=== PATIENT | male | born 1975 | race American Indian/Alaskan Native ===

== ENCOUNTER 2018-09-26 16:22 | Emergency (ER) | payer OTHER ==
--- NOTE | 2018-09-26 17:16 | Emergency Department Report ---
HPI - General Chief Complaint: Sore Throat Time Seen by Provider: 09/26/18 17:04 - HPI HPI: This is a 42-year-old male here reported that he has sore throat and nasal congestion but he also was exposed to STD because condom broke. He is not sure whether other person had STD symptoms. He said he can get in touch. Denies any penile drainage or burning. Denies any urinary burning. Denies any fever or chills, cough, night sweats, headache or chest pain. No medication taken. Denies any medical problems and sore throat is 4/10 worse with swallowing and no alleviating factors. No medication taken. Denies any penile rash or lesion. Denies blood in his urine. He is here wanting treatment for std ED Past Medical Hx - Past Medical History Previous Medical History?: No - Surgical History Past Surgical History?: No - Family History Family history: hypertension - Social History Smoking Status: Never Smoker Substance Use Type: None - Medications Home Medications: Home Medications Medication Instructions Recorded Confirmed Last Taken Type Cetirizine HCl [ZyrTEC] 10 mg PO QDAY 14 Days #14 capsule 09/26/18 Unknown Rx Fluticasone [Flonase] 1 spray NS QDAY 14 Days #1 bottle 09/26/18 Unknown Rx Ibuprofen [Motrin] 600 mg PO Q8H PRN #12 tablet 09/26/18 Unknown Rx ED Review of Systems ROS: Stated complaint: SINUS Other details as noted in HPI Constitutional: denies: chills, fever Eyes: denies: eye pain, eye discharge ENT: throat pain, congestion. denies: ear pain, dental pain, epistaxis Respiratory: denies: cough, shortness of breath, wheezing Cardiovascular: denies: chest pain, palpitations, dyspnea on exertion, edema, syncope Gastrointestinal: denies: abdominal pain, nausea, vomiting, hematemesis, hematochezia Genitourinary: denies: dysuria, hematuria Musculoskeletal: denies: arthralgia Skin: denies: rash Neurological: denies: headache, abnormal gait Physical Exam - Physical Exam Vital Signs: Vital Signs 09/26/18 16:45 Temperature 98.8 F Pulse Rate 62 Respiratory 16 Rate Blood Pressure 155/91 O2 Sat by Pulse 99 Oximetry General: This is a 42-year-old male well-nourished well-developed in no acute distress. Physical Exam: Head: Normocephalic atraumatic Ears:BIateral TM congested without erythema and loss of bony landmarks. Danis EAC with normal exam. No mastoid bone tenderness. Mouth: Moist, no pharyngeal erythema or exudate . UVULA midline and oral airways patent. No peritonsillar abscess Neck: Nontender to palpate, supple, normal range of motion. No adenopathy. No c- spine tenderness. Nose: Bilateral nasal mucosa congested/erythema with clear drainage. Maxillary and frontal sinuses non-tender to palpate. Eyes: Bilateral Sclerae and conjunctiva without injection. Bilateral pupils equal and reactive to light. Bilateral lids are normal. Normal accommodation.BEOMI Lungs: Clear to auscultate bilaterally, no rhonchi wheezes or rales. Normal work of breathing and no chest wall tenderness CV: S1, S2. Regular rate and rhythm negative murmur. Capillary refill is less than 3 seconds Abdomen: Nontender to palpation in all quadrants: No guarding or rebound tenderness. Positive bowel sounds in all quadrants. No CVA tenderness Extremity: No clubbing, cyanosis or edema. +2 pulses in all extremities and no neurovascular compromise Skin: Clean dry and intact, no rashes or lesions Psych: Normal mood and behavior ED Course Vital Signs 09/26/18 16:45 Temperature 98.8 F Pulse Rate 62 Respiratory 16 Rate Blood Pressure 155/91 O2 Sat by Pulse 99 Oximetry - Reevaluation(s) Reevaluation #1: 09/26/18 17:21 Patient to receive empiric treatment for gonorrhea, chlamydia and Trichomonas. He also received 800 mg Motrin for sore throat in ED. ED Medical Decision Making - Medical Decision Making This is 42-year-old male here report that he wants to be treated for STD due to possible exposure to STD with no certainty. He said while he was having sex: Number and he is concerned because he cannot get other person that he was having sexual activity with. He was empirically treated for gonorrhea, chlamydia and Trichomonas in emergency room and referred to primary care physician as he does have access to one for complete physical exam to include STD panel and he is in agreement. He was treated for sore throat with Motrin 100 mg and has diagnosis URI due to nasal congestion, runny nose and bilateral TM congested. He voiced understanding of diagnosis, treatment plan and need to follow up with his primary care physician for further evaluation and treatment. Sex encouraged and he voiced understanding. Patient discharged home with prescription for Zyrtec, motrin and Flonase. Critical care attestation.: If time is entered above; I have spent that time in minutes in the direct care of this critically ill patient, excluding procedure time. ED Disposition Clinical Impression: Concern about STD in male without diagnosis Pharyngitis Qualifiers: Pharyngitis/tonsillitis etiology: unspecified etiology Qualified Code(s): J02.9 - Acute pharyngitis, unspecified Upper respiratory infection Qualifiers: URI type: unspecified URI Qualified Code(s): J06.9 - Acute upper respiratory infection, unspecified Disposition: TO HOME OR SELFCARE Is pt being admited?: No Does the pt Need Aspirin: No Condition: Stable Instructions: Sexually Transmitted Diseases (ED), Safe Sex (ED), Upper Respiratory Infection (ED) Additional Instructions: See multiple primary care physician referral. Please call to schedule an appointment for follow-up visit for complete physical and check for STD to include HIV and herpes. You were treated for gonorrhea, chlamydia and trichomonas in emergency room. This is a one-time treatment. Please avoid having sexual activity over the next 2 weeks and please avoid using alcohol over the next 7 days as medication can cause severe nausea and vomiting with medication given to treat Trichomonas Please inform your partner that you are treated for STD and emergency room Prescriptions: Cetirizine HCl [ZyrTEC] 10 mg PO QDAY 14 Days #14 capsule Fluticasone [Flonase] 1 spray NS QDAY 14 Days #1 bottle Ibuprofen [Motrin] 600 mg PO Q8H PRN #12 tablet PRN Reason: Pain Referrals: PRIMARY CARE, [Primary Care Provider] - 3-5 Days ZURDO HUTTON MD [Staff Physician] - 3-5 Days BRIGETTE CANCHOLA MD [Staff Physician] - 3-5 Days MARIA R MALDONADO MD [Staff Physician] - 3-5 Days Forms: Work/School Release Form(ED)
[2018-09-26] MEDS ORDERED: FLAGYL PO ONE (17:19)
[2018-09-26] MEDS ORDERED: ZITHROMAX PO ONE (17:19)
[2018-09-26] MEDS ORDERED: XYLOCAINE 1% MPF 5 mL INFILTRATI ONE (17:19)
[2018-09-26] MEDS ORDERED: IBUPROFEN PO ONE (17:19)
[2018-09-26] MEDS ORDERED: ROCEPHIN IM ONE (17:19)
[2018-09-26 17:52] VITALS: BP 133/80
== END 2018-09-26 17:49 | disposition home or self-care (01) ==
LOC: ED 16:22
DX: J06.9 Acute upper respiratory infection, unspecified (principal); J02.9 Acute pharyngitis, unspecified; Z20.2 Contact with and (suspected) exposure to infections with a predominantly sexual mode of transmission
CPT/HCPCS: 96372; 99282; J0696

== ENCOUNTER 2019-05-14 07:36 | Emergency (ER) | payer SELFPAY ==
[2019-05-14 07:49] VITALS: BP 133/88
--- NOTE | 2019-05-14 08:17 | Emergency Department Report ---
Chief Complaint: Urogenital-Male Stated Complaint: POSS STD Time Seen by Provider: 05/14/19 08:09 - HPI History of Present Illness: Mr. Tanner is a healthy 43 year old male who desires to be checked for STD. He had unprotected intercourse with a new sexual partner. He denies penile discharge. Denies fever. Denies lesions or rash. Denies pain. I provided verbal and written form education. I encouraged outpatient HIV and HSV testing prior to beginning a new monogamous relationship. I strongly encouraged barrier protection during casual intercourse. His last instance of intercourse occurred approximately 1-1/2 weeks ago. He has not had symptoms since this encounter. Medical screening exam performed and completed. He currently does not have an acute emergent condition which requires further treatment or evaluation. - Exam Vital Signs: Vital Signs 05/14/19 07:43 Temperature 98.3 F Pulse Rate 63 Respiratory 16 Rate Blood Pressure 133/88 O2 Sat by Pulse 99 Oximetry MSE screening note: Focused history and physical exam performed. Due to findings the following was ordered: ED Disposition for MSE Clinical Impression: Possible exposure to STD Disposition: Z-07 MED SCREENING EXAM-LEFT Condition: Stable Referrals: [facility] [Outside] - 3-5 Days
== END 2019-05-14 08:24 | disposition left against medical advice (07) ==
LOC: ED 07:36
DX: Z20.2 Contact with and (suspected) exposure to infections with a predominantly sexual mode of transmission (principal)
CPT/HCPCS: 99282